=== PATIENT | female | born 1990 | race Caucasian/White ===

== ENCOUNTER 2019-06-28 01:04 | Emergency (ER) | payer SELFPAY ==
[~2019-06-28] VITALS: Ht 162.6 cm; Wt 66.2 kg
--- NOTE | 2019-06-28 01:20 | NUR ---
28/F Pt BIBSELF FROM HOME, C/O RADHA FLANK PAIN SINCE YESTERDAY, WITH N/V AT HOME. Pt STATED SHE ALSO NOTICED PINK TINGED URINE. Pt IS A/OX4, VERBAL, ABLE TO MAKE NEEDS KNOWN. NO S/S OF ACUTE DISTRESS OR SOB NOTED. VS STABLE. Pt RESTING IN BED, BEING SEEN BY MD AT BEDSIDE.
--- NOTE | 2019-06-28 01:27 | NUR ---
URINE COLLECTED. SENT WITH LAB.
[2019-06-28] MEDS ORDERED: IV NS 0.9% 1,000 ML BAG IV ONE (01:30)
[2019-06-28] MEDS ORDERED: KETOROLAC TROMETHAMINE INJ 30 MG/ML VIAL IV ONE (01:30)
[2019-06-28] MEDS ORDERED: KETOROLAC TROMETHAMINE 15 MG/ML VIAL ONE (01:31)
[2019-06-28 01:37] LABS: BASOPHILS # (AUTO) 0.1 /CMM (0.0-0.2); BASOPHILS % (AUTO) 1.2 % (0.0-2.0); EOSINOPHILS % (AUTO) 2.1 % (0.0-6.0); HEMATOCRIT 34 % (33-45); HEMOGLOBIN 11.6 g/dL (11.5-14.8); LYMPHOCYTES # (AUTO) 1.3 /CMM (0.8-4.8); LYMPHOCYTES % (AUTO) 23.5 % (20.0-44.0); MEAN CORPUSCULAR HGB CONC 35 g/dl (31.0-36.0); MEAN CORPUSCULAR VOLUME 96 fL (82-100); MONOCYTES # (AUTO) 0.5 /CMM (0.1-1.30); MONOCYTES % (AUTO) 9.4 % (2.0-12.0); NEUTROPHILS # (AUTO) 3.6 /CMM (1.8-8.9); NEUTROPHILS % (AUTO) 63.8 % (43.0-81.0); PLATELET COUNT (AUTO) 201 /CMM (150-450); RED BLOOD CELL COUNT(AUTO) 3.51 MIL/uL (4.0-5.2); WHITE BLOOD COUNT (AUTO) 5.6 K/uL (4.3-11.0)
[2019-06-28 01:41] LABS: APPEARANCE,URINE Clear (CLEAR); BILIRUBIN,URINE Negative (NEGATIVE); BLOOD, URINE Moderate Ery/uL (NEGATIVE); COLOR,URINE Yellow (YELLOW); KETONES,URINE Negative (NEGATIVE); LEUKOCYTE ESTERASE ,URINE Negative (NEGATIVE); NITRITE, URINE Negative (NEGATIVE); PROTEIN,URINE Negative (NEGATIVE); UGLUCOSE Negative (NEGATIVE); UROBILINOGEN,URINE 0.2 EU/dL (0.2)
[2019-06-28 01:47] LABS: CALCIUM, SERUM 9.1 mg/dL (8.5-10.1); CREATININE 0.6 mg/dL (0.6-1.3); POTASSIUM 3.9 mmol/L (3.5-5.1)
--- NOTE | 2019-06-28 01:51 | NUR ---
IV ACCESS STARTED ON RAC #20G. LABS DRAWN.
--- NOTE | 2019-06-28 01:51 | NUR ---
Pt REFUSED TO TAKE TORADOL
[2019-06-28 01:52] LABS: ALBUMIN 3.7 g/dL (3.4-5.0); BILIRUBIN,DIRECT 0.1 mg/dL (0.0-0.2); BILIRUBIN,TOTAL 0.3 mg/dL (0.2-1.0); TOTAL PROTEIN, SERUM 6.9 g/dL (6.4-8.2)
[2019-06-28] MEDS ORDERED: ONDANSETRON HCL/PF 4 MG/2 ML VIAL ONE (01:53)
--- NOTE | 2019-06-28 01:56 | NUR ---
PER MD VERBAL ORDER GIVEN TO ADMINISTER ZOFRAN 4MG IV. WILL CARRY OUT ORDER.
[2019-06-28 02:06] LABS: BACTERIA,URINE None seen /HPF (None Seen); SQUAMOUS EPITHELIAL CELL,UR Few /HPF (None Seen); WBC,URINE 0-2 /HPF (0-3)
--- NOTE | 2019-06-28 02:15 | NUR ---
PER MD VERBAL ORDER GIVEN TO ADMINISTER PERCOCET 5/325MG PO PAIN MED
[2019-06-28] MEDS ORDERED: oxyCODONE/APAP (5/325 MG) 1 UDTAB TABLET ONE (02:16)
--- NOTE | 2019-06-28 02:19 | NUR ---
Pt BEING TAKEN DOWN FOR CT OF ABD.
--- NOTE | 2019-06-28 03:29 | NUR ---
pt cleared for discharge. waiting for ivf to finish and for pt's mother to pick her up. informed pt not to drive.
--- NOTE | 2019-06-28 03:59 | NUR ---
Patient discharged to home in stable condition. Written and verbal after care instructions given. Patient verbalizes understanding of instruction. Patient left facility on foot with steady gait. Informed pt to not drive, pt stated that her mother is outside waiting to take her home. No s/s of acute distress or sob noted. iv access on RAC removed, secured with gauze and tape. No s/s of bleeding noted. ID band removed.
[2019-06-28] MEDS ORDERED: ONDANSETRON HCL/PF - ER 4 MG/2 ML VIAL IV ONE (04:00)
[2019-06-28] MEDS ORDERED: oxyCODONE/APAP (5/325 MG) 1 UDTAB TABLET PO ONE (04:00)
[2019-06-28 04:04] VITALS: BP 130/76
== END 2019-06-28 04:06 | disposition home or self-care (01) ==
LOC: ER 01:07
DX: R31.9 Hematuria, unspecified (principal); R10.9 Unspecified abdominal pain; F10.10 Alcohol abuse, uncomplicated; Y90.9 Presence of alcohol in blood, level not specified; Z90.89 Acquired absence of other organs; Z88.6 Allergy status to analgesic agent; Z88.0 Allergy status to penicillin
CPT/HCPCS: 36415; 74176; 80048; 80076; 81001; 83690; 84703; 85025; 96374; 99284; J2405; J7030; 81000-TC; J1885